=== PATIENT | female | born 1950 | race Caucasian/White ===

== ENCOUNTER 2017-07-22 06:28 | Day surgery (SDC) | payer BC ==
[2017-07-22] MEDS ORDERED: Lactated Ringers 1,000 ML IV SCH (07:00)
[2017-07-22] MEDS ORDERED: Propofol 200 MG/20 ML SDV ONE (07:07)
[2017-07-22] MEDS ORDERED: Midazolam 1 MG/ML 2 ML SDV ONE (07:07)
[2017-07-22] MEDS ORDERED: fentaNYL 100 MCG/2 ML SDV ONE (07:07)
[2017-07-22 09:18] VITALS: BP 131/66
--- NOTE | 2017-07-22 12:03 | OR ---
DATE OF PROCEDURE: 07/22/2017 PREOPERATIVE DIAGNOSIS: History of tubular adenomas. POSTOPERATIVE DIAGNOSES: 1. Diverticulosis. 2. Two small rectal polyps adjacent to each other. 3. History of tubular adenomas. PROCEDURE PERFORMED: Colonoscopy to the cecum with biopsy resection of two small colon polyps adjacent to each other in the rectum, sent to the laboratory as one specimen. SURGEON: Cresencio Snyder MD. ANESTHESIA: IV anesthesia with monitored anesthesia care. INDICATION: This 66-year-old white female is here for a colonoscopy. She has a history of tubular adenomas. She indicates that she is fully aware of the procedure's risks and alternatives, as she is a nurse here, and decided that we proceed with the colonoscopy. DESCRIPTION OF PROCEDURE: The patient was placed in the left lateral decubitus position. IV anesthesia was administered by the Anesthesia Service. Time-out was held. A rectal exam was performed, which was unremarkable. The flexible video Olympus colonoscope was introduced through her anus, up her rectum and out her colon all the way to the cecum. En route, we saw several left-sided diverticula. There was no bleeding or inflammation associated with any of them. Once the cecum was reached, the scope was slowly withdrawn, examining the mucosa throughout. No additional mucosal abnormalities were noted until we reached the rectum. Here, we encountered two small polyps adjacent to each other. They were removed with the biopsy forceps and sent to the laboratory as one specimen as they were next to each other. The scope was retroflexed in the rectum with the distal rectum appearing unremarkable. The scope was straightened and removed. She tolerated the procedure well. Cresencio Snyder MD /[id number]
== END 2017-07-22 09:13 | disposition home or self-care (01) ==
LOC: JP.SDS 06:28
PROVIDERS: ATTEND Surgery
DX: Z12.11 Encounter for screening for malignant neoplasm of colon (principal); K62.1 Rectal polyp; K57.30 Diverticulosis of large intestine without perforation or abscess without bleeding; Z85.038 Personal history of other malignant neoplasm of large intestine; I10 Essential (primary) hypertension; F41.9 Anxiety disorder, unspecified; F32.9 Major depressive disorder, single episode, unspecified; F17.210 Nicotine dependence, cigarettes, uncomplicated
CPT/HCPCS: 45380; 88305; J2250; J2704; J3010; J7120

== ENCOUNTER 2022-08-14 06:19 | Day surgery (SDC) | payer MEDICARE, OTHER ==
[2022-08-14] MEDS ORDERED: Midazolam 1 MG/ML 2 ML SDV ONE (07:20)
[2022-08-14] MEDS ORDERED: Propofol 200 MG/20 ML SDV ONE ×2 (07:20→07:58)
[2022-08-14] MEDS ORDERED: fentaNYL 50 MCG/ML SDV ONE (07:45)
[2022-08-14] MEDS ORDERED: Lactated Ringers 1,000 ML IV SCH (08:00)
[2022-08-14 08:53] VITALS: BP 129/59; PULSE 75
== END 2022-08-14 09:10 | disposition home or self-care (01) ==
LOC: JP.SDS 06:19
PROVIDERS: ATTEND Student in an Organized Health Care Education/Training Program
DX: Z12.11 Encounter for screening for malignant neoplasm of colon (principal); D12.0 Benign neoplasm of cecum; D12.3 Benign neoplasm of transverse colon; K57.30 Diverticulosis of large intestine without perforation or abscess without bleeding; I10 Essential (primary) hypertension; Z79.899 Other long term (current) drug therapy
CPT/HCPCS: 62323; 88305; J2250; J2704; J3010; J7120

== ENCOUNTER 2023-10-07 14:37 | Emergency (ER) | payer MEDICARE, OTHER ==
[2023-10-07 14:49] VITALS: BP 150/65; PULSE 94
[2023-10-07 14:57] LABS: APPEARANCE,URINE CLOUDY (CLEAR); COLOR,URINE ORANGE (YELLOW); KETONES,URINE NEGATIVE (NEGATIVE); LEUKOCYTE ESTERASE,URINE LARGE (NEGATIVE); NITRITE,URINE POSITIVE (NEGATIVE); OCCULT BLOOD,URINE LARGE (NEGATIVE)
[2023-10-07 15:05] LABS: BACTERIA,URINE MANY; EPITHELIAL CELLS,URINE FEW; MUCUS,URINE NOT SEEN; RBC,URINE PACKED (0-5); WBC,URINE >100 (0-5)
[2023-10-07 15:06] LABS: AMORPHOUS SEDIMENT,URINE NOT SEEN
== END 2023-10-07 16:51 | disposition home or self-care (01) ==
LOC: JP.ED 14:37
DX: N39.0 Urinary tract infection, site not specified (principal); F17.210 Nicotine dependence, cigarettes, uncomplicated; I10 Essential (primary) hypertension; Z79.84 Long term (current) use of oral hypoglycemic drugs; Z79.899 Other long term (current) drug therapy; Z88.6 Allergy status to analgesic agent
CPT/HCPCS: 81001; 99283

== ENCOUNTER 2024-08-21 01:13 | Emergency (ER) | payer MEDICARE, OTHER ==
[2024-08-21] MEDS: fentaNYL 100 MCG/2 ML SDV IVPUSH ONE (01:47)
[2024-08-21] MEDS: HYDROmorphone 1 MG/ML Syringe IVPUSH ONE ×2 (02:51→07:26)
[2024-08-21] MEDS: Ondansetron 4 MG/2 ML SDV IVPUSH ONE ×2 (02:59→07:37)
[2024-08-21 08:20] VITALS: BP 150/48; PULSE 95
== END 2024-08-21 09:15 ==
LOC: JP.ED 01:13
DX: S72.001A Fracture of unspecified part of neck of right femur, initial encounter for closed fracture (principal); I10 Essential (primary) hypertension; F17.210 Nicotine dependence, cigarettes, uncomplicated; Z79.899 Other long term (current) drug therapy; Z88.8 Allergy status to other drugs, medicaments and biological substances; W01.0XXA Fall on same level from slipping, tripping and stumbling without subsequent striking against object, initial encounter
CPT/HCPCS: 73501; 73551; 96374; 96375; 96376; 99285; J1171; J2405; J3010